=== PATIENT | female | born 1995 | race Hispanic/Latino ===

== ENCOUNTER 2017-03-11 04:07 | Inpatient (IN) | payer OTHER ==
[~2017-03-11] VITALS: Ht 160 cm; Wt 94.3 kg
[~2017-03-11 04:07] MED LIST: ACYC400T2 PO; DOCU-41 PO; FERR-83 PO; HYDR-4003 PO; IBUP-1827 PO; NOMED; SENN-133 PO
[2017-03-11] MEDS ORDERED: Lactated Ringer's 1,000 ML IV PRN (04:08)
[2017-03-11] MEDS ORDERED: Oxytocin 30 Units/500 mL LR 30 UNITS in IV Premix 1 EACH IV PRN ×3 (04:10→07:25)
[2017-03-11] MEDS ORDERED: Hemorrhage Kit, Post Partum XX ONE ×2 (04:10→07:25)
[2017-03-11] MEDS ORDERED: Oxytocin 10 Unit/mL Inj IM PRN ×2 (04:10→07:25)
[2017-03-11] MEDS ORDERED: Ondansetron 2 mg/mL 2 mL Inj IVPUSH PRN (04:10)
[2017-03-11] MEDS ORDERED: Carboprost 250 mCg/mL Inj IM PRN ×2 (04:10→07:25)
[2017-03-11] MEDS ORDERED: Methylergonovine 0.2 mg/mL Inj IM PRN ×2 (04:10→07:25)
[2017-03-11] MEDS ORDERED: fentaNYL-PF 50 mCg/mL 2 mL Inj IVPUSH PRN (04:10)
[2017-03-11] MEDS ORDERED: Sodium Chloride LOK Flush 10 mL Syringe IVFLUSH PRN (04:10)
[2017-03-11 04:44] LABS: Mean Corpuscular Hemoglobin 20.7 pg (27.0-35.0); Mean Corpuscular Volume 72.1 fL (81-100)
--- NOTE | 2017-03-11 05:13 | PCM.HPOB ---
Subjective Date of Service: Mar 11, 2017 Referring Provider: Admitting Physician: Ana Enrique MD Primary Care Physician: Ana Enrique MD Attending Physician: Ana Enrique MD Chief Complaint Active labor at 39+6 weeks gestational age History of Present History of Present Illness Patient is a very pleasant 22 year old SA 3 with LMP of 06/07/2016 and EDC by u/s done at 9+ 5 weeks is 03/12/2017. she has history of iron deficiency anemia, and Hgb was only 9.1 starting out the . She has been on PN vitamins, but does not take iron regularly. She has had sporadic PN care and attended 5 visits. Weight gain in the was 20 lbs, and she was normotensive thru out , and in labor thus far. She is attending college and working towards a degree in Human Resources, with chemical dependency training. She woke with painful contractions at 02:30 today, that picked up over the next hour, and came to the Center at 04:00. She was 5cm on arrival, with vertex presentation, and FHR was reactive, with baseline in the 130 to 140's. She was candelario every 5 to 8 minutes, and was admitted. I came in promptly and patient was being admitted and IV line getting established. Vaginal exam showed her to be 7cm. 100% effaced, with vertex at -1 station, AROM was done for a moderate amount of thin stained amniotic fluid. Patient is coping well with her contractions and breathing thru them. She does not want an epidural, and has delivered naturally for the previous 3 babies. EFW is 8 to 8 1/2 lb range, and is anticipated. OB History: (9), Para (0), Term (5), Pre-term (0), ( 3), Living (5) Obstetrical Complications: Other (iron deficiency anemia) Past Medical History Obstetrical History: #1 was a miscarriage in 2006 at 6 weeks GA. #2 was a molar in May 2008 with a D & C for a hydropic abortus, and this was done under a spinal anesthetic.Mom was 15 years old. Baby #1 was born in August 2009 at 38+5 weeks with 6 hours of labor, and Mom was 16 years old. She had PIH at term, with induction of labor, and an epidural. She went onto of a baby girl weighing 6lb 14 ounces. " Bria" Baby #2 was born in August 2010 at 41 weeks with 4.5 hours of labor, and Mom was 17 years old. She had cytotec induction of labor, but no PIH. She did have an epidural. She went onto of a baby girl weighin 6 lb 12 ounces. "Aga" Baby #3 was born July 2011 at 39 +4 weeks with 6 hours of labor, and Mom was 18 years old, and had completed highschool. She had of a baby girl weighing 7lbs, and had IV fentanyl in labor. She had sporadic PN care with this . " Matthew Pendleton" Baby #4 was born October 2013 at 40 weeks of pregancy, with 2.5 hours of labor , and Mom was 20 years old, and attending college and working some. She had PPH in the first 2 hours after delivery, with 2 units of PRBC. She was severely anemic coming into labor, with Hgb 7.7 and bleeding had been aggressively managed, but there was little reserve. " Benito" #7 was a miscarriage in April 2015 at 6 weeks that passed on its own with no complications. Baby #5 was born January 2016 at 40 +3 weeks with 2 hours of labor. She had of a baby boy weighing 8lb 13 ounces. She had a healthy and baby. " Louie" This is her 9th and current . Gynecologic History: She has had abnormal pap smears in 2015 range with colposcopy and biopsy. She is HPV +. She has also had chlamydia in the past which was treated. Medical History: She has had recurrent tonsillitis in 2010 but did not proceed with tonsillectomy. She had a lip stud on the lower lip which overgrew and was removed. She has had chronic iron deficiency anemia with closely spaced pregnancies. Surgical History: D & C for a hydropic abortus in May 2008. 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 She is working towards a degree in human services with chemical dependency training. Hx Tobacco Use: No Hx Alcohol Use: No Hx Substance Use: No Past Family History Living Arrangement: with Family Genetic Screening/Counseling Genetic Screening/Counseling: Negative Baby father-had child w defect: No Review of Systems Constitutional: Y: Dizziness, Fever Eyes: Denies: Blurred Vision, Conjunctive Inflammation, Vision Changes ENT: Denies: Dental Problems, Nasal Congestion, Ulcers/Sores in Mouth Cardiovascular: Denies: Chest Pain, Edema Respiratory: Denies: Cough, SOB with Exertion Gastrointestinal: Denies: Constipation, Diarrhea, Nausea, Vomiting Genitourinary: Denies: Dysuria Musculoskeletal: Denies: Redness, Swelling Skin/Breasts: Denies: Bruising, Discharge Skin: Denies: Jaundice Neurological: Denies: Change in Speech Psychologic: Denies: Agitation, Anxious, Depression Hematologic: Denies: Adenopathy Medications Home medications vitamins 1 tab daily, with sporadic use of iron supplements Allergy Coded Allergies: No Known Allergies (Verified , 10/24/15) Exam Vital Signs 122/76, Temp 36.8, HR 78 Constitutional: Well-developed, Well-nourished HEENT: PERRLA, EOMI, Mucous Membr Moist/[facility] Lungs: Clear to Auscultation, Normal Air Movement Heart: Regular Rate/Rhythm, Normal S1, Normal S2, No Murmurs/Rubs/Gallops Abdomen: Gravid, Normal bowel sounds, Soft, No tenderness Lymphatic: Normal: Neck Palpation of Nodes Extremities: Pulses Palpable x4, Warm, No Edema Neurological/Psychiatric: Alert, Oriented X3, Cooperative, No Acute Distress Neuro: Grossly Neurologically Intact Labs/Diagnostics Labs She is O +, with no abnormal antibodies. Pap smear showed HGSIL, and will be followed . She is immune to varicella, but is not immune to rubella ( vaccination planned PP). RPR was nonreactive, urine culture was negative. HIV was negative, Hepatitis B s antigen was negative, Hepatitis C was negative. HSV type 1 is positive, but type 2 is negative. TSH normal at 0.8, and A 1C was 5.4% . GTT was not done. GC/Chlamydia was negative. GBS was negative. Maternal Blood Type: O Hx Rho(D) Immune Globulin: No Antibody Screen: negative Group B Strep Results: Negative Previous Infant with GBS: No Lab History: Positive for: Hx Herpes, Negative for: Hx Chicken Pox, Hx Gonorrhea, Hx HIV, Hx Syphilis OB Intrapartum Assessment/Plan Assessment 22 year old at 39+6 weeks with active labor. AROM showed thin meconium staining to the amniotic fluid.FHR baseline is in the 130's with good BTBV and some accels. Pitocin augmentation at 2 millunits per minute was recently started , as contractions were still 5 minutes apart and cervix was unchanged.Mom is coping well with her contractions, and FHR is reassuring. is anticipated.Hemoglobin is 7.8 on admission and aggressive management of any PP bleeding will be done. We will be keeping pitocin up and running PP as well, as her last bleed was about 2 hours after delivery. Problems: (1) Qualifiers: Weeks of gestation: 39 weeks Qualified Code: Z3A.39 - 39 weeks gestation of Status: Acute ICD Code: Z33.1 Pain Evaluation: Adequate Pain Control Ana Enrique MD Mar 11, 2017 05:13
[2017-03-11] MEDS ORDERED: Lactated Ringer's 1,000 ML IV SCH (06:00)
[2017-03-11] MEDS ORDERED: LANOlin HPA 7 Gm Ointment TOPICAL PRN (07:25)
[2017-03-11] MEDS ORDERED: Measles-Mumps-Rubella Vaccine 0.5 mL Inj SUBQ ONE (07:25)
[2017-03-11] MEDS ORDERED: Witch Hazel-Glycerin Pads TOPICAL PRN (07:25)
[2017-03-11] MEDS ORDERED: Benzocaine (Dermoplast) 20% 60 Gm Spray TOPICAL PRN (07:25)
--- NOTE | 2017-03-11 07:34 | PCM.OBVAG ---
Vaginal Delivery Date of Service Mar 11, 2017 Pre Operative Diagnosis Pre Operative Diagnosis 1. at 39+6 weeks with spontaneous labor 2. Iron deficiency anemia with admitting Hgb 7.8 3. Thin meconium staining to the amniotic fluid 4. of LBM 5. Post hemorrhage of > 500mls Post Operative Diagnosis Post Operative Diagnosis 1. at 39+6 weeks gestational age with spontaneous labor 2. Iron deficiency anemia with admitting Hgb 7.8 3. Thin meconium staining of the amniotic fluid 4. of LBM infant 5. hemorrhage with EBL > 500mls Procedure Obstetical Procedure: Normal Spontaneous Vaginal Delivery, Repair of Perineal Tear (1st degree) [employer] Officer/Placement Coordinator Provider and Placement Coordinator: Dr. Ana Enrique Indication for Procedure Induction: Active labor, Pitocin augmentation, AROM, Progressed normally through labor Findings Obstetrical Findings: Napoleon (Male), Cord (3 Vessel), Weight ( grams), Presentation (Vertex), 1 minute (9), 5 minutes (9), Placenta (Intact /Normal), Perineal Laceration (1st degree) Analgesia/Medications Obstetrical Anesthesia: Local Procedure Details Procedure Details Patient is a pleasant 22 year old SA 3 who has had sporadic PN care and EDC 03/12/2017 by a first trimester ultrasound. She started in labor at 02:30 hrs and was 5 cm on arrival at 04:00hrs. FHR was reassuring in labor and delivery, with baseline in the 130 to 140's with good BTBV and accelerations. AROM was done at 7 cm, for thin meconium staining to the amniotic fluid. Mother' s contractions were spacing out at every 5 minutes and pitocin augmentation of labor at 2 milliunits per minute was started. Her first stage of labor was 4 hours and 12 minutes, second stage was 3 minutes and third stage was 21 minutes. She went onto of a live born male infant, with BW 3542 grams, and Apgars of 9 at one minute and 10 at 5 minutes. There was terminal meconium noted , but baby was vigorous and did well. He was placed on the maternal abdomen, and delayed cord clamping was done. Mom sustained a small first degree perineal tear which was repaired with 3-O vicryl to achieve good cosmesis and hemostasis. Mother had variable gushes of blood PV before the placenta delivered , and pitocin was running at 350mls per hour, and repeated fundal massage was done with good response. Cytotec 800mcg [place] x 1 dose was placed and good uterine tone was noted. Nonetheless, EBL at time of delivery was > 500mls. CBC is pending at this time, and pt has also been cross matched for 2 units of PRBC. Placenta delivered intact with a 3 vessel cord, and specimen was sent for disposal. Mom was GBS negative. Her BP after delivery has ranged 129-132/ 65 to 74 with HR in the low 80's. However, she is very pale, fatigued and feels dizzy and weak. CBC came back showing Hgb of 7.2 and pt would like to have the blood transfused to day. Last time, we had delayed this until the next day, and while pt tolerated this well, she would like to start feeling better with less dizziness and fatigue. 2 units will be transfused today. Specimen Placenta was for routine disposal. Blood Loss & Administration Estimated Blood Loss: >500 Post Procedure Plan Post Procedure Plan CBC, PT/INR and fibrinogen levels ordered and patient has been crossmatched for 2 units of PRBC. She does intend to breastfeed, and baby is doing well. Post delivery Condition: Mom Ana De Paz MD Mar 11, 2017 07:34
[2017-03-11 08:04] LABS: Mean Corpuscular Volume 72.6 fL (81-100)
[2017-03-11 08:16] LABS: INR 0.88 ratio
[2017-03-11] MEDS: HYDROcodone-APAP 5-325 mg Tablet PO PRN ×3 (12:17→22:39)
[2017-03-11] MEDS: Ascorbic Acid 500 mg Tablet PO SCH (17:30)
[2017-03-11] MEDS: Lactated Ringer's 1,000 ML IV SCH ×2 (19:00→23:22)
[2017-03-12] MEDS: HYDROcodone-APAP 5-325 mg Tablet PO PRN ×3 (02:38→10:25)
[2017-03-12] MEDS ORDERED: Measles-Mumps-Rubella Vaccine 0.5 mL Inj SUBQ ONE (06:25)
[2017-03-12 07:17] LABS: Mean Corpuscular Hemoglobin 22.5 pg (27.0-35.0); Mean Corpuscular Volume 75.9 fL (81-100)
[2017-03-12] MEDS: Lactated Ringer's 1,000 ML IV SCH (07:22)
--- NOTE | 2017-03-12 08:04 | PCM.DC.OB ---
Obstetrical Discharge Summary Date of Service Mar 12, 2017 Date of hospital admission Mar 11, 2017 at 04:07 Date of Discharge: Mar 12, 2017 Providers Admitting Physician: Ana Enrique MD Primary Care Physician: Ana Enrique MD Attending Physician: Ana Enrique MD Diagnosis at Time of Discharge #1 at 39 weeks +6 days with spontaneous labor #2 iron deficiency anemia with admitting hemoglobin 7.8 #3 thin meconium staining to the amniotic fluid #4 spontaneous vaginal delivery of a live born male #5 hemorrhage> 500 mils with transfusion of 2 units PRBC Problems: (1) Qualifiers: Weeks of gestation: 39 weeks Qualified Code: Z3A.39 - 39 weeks gestation of Status: Resolved ICD Code: Z33.1 (2) hemorrhage Qualifiers: hemorrhage type: other immediate Qualified Code: O72.1 - Other immediate hemorrhage Onset Date: 10/29/2013 Status: Resolved ICD Code: O72.1 (3) Iron (Fe) deficiency anemia Qualifiers: Iron deficiency anemia type: inadequate dietary iron intake Qualified Code : D50.8 - Other iron deficiency anemias Status: Acute ICD Code: D50.9 (4) Spontaneous vaginal delivery Status: Acute ICD Code: O80 Brief History and Physical: Patient is a very pleasant 22 year old SA 3 with LMP of 06/07/2016 and EDC by u/s done at 9+ 5 weeks is 03/12/2017. she has history of iron deficiency anemia, and Hgb was only 9.1 starting out the . She has been on PN vitamins, but does not take iron regularly. She has had sporadic PN care and attended 5 visits. Weight gain in the was 20 lbs, and she was normotensive thru out , and in labor thus far. She is attending college and working towards a degree in Human Resources, with chemical dependency training. She woke with painful contractions at 02:30 today, that picked up over the next hour, and came to the Center at 04:00. She was 5cm on arrival, with vertex presentation, and FHR was reactive, with baseline in the 130 to 140's. She was candelario every 5 to 8 minutes, and was admitted. I came in promptly and patient was being admitted and IV line getting established. Vaginal exam showed her to be 7cm. 100% effaced, with vertex at -1 station, AROM was done for a moderate amount of thin stained amniotic fluid. Patient is coping well with her contractions and breathing thru them. She does not want an epidural, and has delivered naturally for the previous 3 babies. EFW is 8 to 8 1/2 lb range, and is anticipated. Hospital Course: Patient is a pleasant 22-year-old G9 now P6 who came in to the center yesterday in active labor and was 5 cm on presentation. She had an EDC of 2016 and has had sporadic care. Artificial rupture of membranes was done at 7 cm and showed thin meconium staining to the amniotic fluid. Contractions were spacing out and cervical change was minimal, so Pitocin 2 milliunits per minute augmentation was started and mother went nicely to complete with this. Her first stage of labor was about 4-1/2 hour second stage 3 minutes, third stage 21 minutes. She went onto spontaneous vaginal delivery of a live born male with weight of 3542 g and Apgars were 9 at 1 minute and 10 at 5 minutes. Mother sustained a small first-degree tear to the perineum which was repaired with 3-0 Vicryl to achieve good cosmesis and hemostasis. Mother had recurrent gushes of blood per vagina while the placenta was waiting to deliver and had several large gushes following delivery. She was treated with fundal massage, IV Pitocin, and Cytotec 800 g per rectum and responded well to this. Her admitting hemoglobin was 7.8 with hematocrit of 27.2 and she has history of chronic iron deficiency anemia. She had not been taking her iron supplements as recommended during the . After delivery she was feeling very lightheaded and was pale and very fatigued. She consented to receive 2 units of packed red blood cells and tolerated this transfusion well. Hemoglobin immediately after delivery was 7.2 with hematocrit of 24.9, but hemoglobin this morning after 2 units is still only up to 8.2 with hematocrit of 27.7. She is still feeling fatigued but her dizziness has resolved and she is less pale. Discussed the importance of taking her iron as directed and she will continue with breast vitamins long-term. On examination she is a pleasant female color is modestly pale but improved from yesterday. She is not orthostatic when upright. Blood pressure is 129/69 , pulse 68-80, and temperature 36.6. Chest was clear throughout with normal respiratory efforts heart sounds are sinus rhythm with no murmurs Presser saw nipples everted and colostrum is expressible. Fundus is firm at the umbilicus. Her perineum is not swollen and sutures are clean and intact and she has moderate rubra lochia. She has some puffiness to the hands and the feet but no significant edema. She is bonding well with her baby and feels ready for discharge later today. Acyclovir (Acyclovir) 400 Mg Tablet 400 MG PO BID Prescribed by: ANA ENRIQUE MD Docusate Sodium (Colace) 100 Mg Capsule 100 MG PO BID Prescribed by: ANA ENRIQUE MD Ferrous Sulfate (Ferrous Sulfate) 325 Mg Tablet 325 MG PO BID Prescribed by: ANA ENRIQUE MD Hydrocodone-Acetaminophen 5-325 mg (Hydrocodone-Acetaminophen 5-325 mg) 1 Each Tablet 1 TABLET PO Q4H PRN PRN For Pain Prescribed by: ANA ENRIQUE MD Ibuprofen (Ibuprofen) 600 Mg Tablet 800 MG PO TIDWM PRN PRN For Mild Pain Prescribed by: ANA ENRIQUE MD No Historical Medication (No Historical Medication) Ea (Reported) Sennosides (Senna) 8.6 Mg Tablet 8.6 MG PO BID PRN PRN For Constipation Prescribed by: ANA ENRIQUE MD Discharge Medications: #1 ibuprofen 800 mg by mouth 3 times a day when necessary #2 Vicodin 5/325 one to 2 tabs by mouth every 6 hours when necessary for pain as needed #3 ferrous sulfate 325 mg by mouth twice daily #4. Vitamin C 250 mg by mouth twice a day with the iron #5 Colace 100 mg by mouth twice a day when necessary for constipation Disposition Patient will be discharged home later today Discharge Diet: No restrictions Discharge Activity-General: Pelvic Rest for 6 weeks, Pelvic Rest, Try not to overdue, Be up and about, Balance rest and activity, Activity as pain allows, Activity as energy allows Ana Enrique MD Mar 12, 2017 08:04
--- NOTE | 2017-03-12 08:10 | PCM.DIOB ---
Obstetrical Disch Instruction Date of Service: Mar 12, 2017 Dates of Hospitalization Date of Hospital Admission Mar 11, 2017 at 04:07 Providers Admitting Physician: Ana Enrique MD Primary Care Physician: Ana Enrique MD Attending Physician: Ana Enrique MD Discharge Diagnosis Discharge Diagnosis #1 at 39+6 weeks with spontaneous labor #2 chronic iron deficiency anemia with admitting hemoglobin of 7.8 #3 thin meconium staining to the amniotic fluid #4 spontaneous vaginal delivery of a live born male #5 hemorrhage with transfusion of 2 units of packed red blood cells Post Operative diagnosis #1 at 39 weeks +6 days with spontaneous labor #2 chronic iron deficiency anemia with admitting hemoglobin of 7.8 #3 thin meconium staining to the amniotic fluid #4 spontaneous vaginal delivery of a live born male #5 hemorrhage with transfusion of 2 units of packed red blood cells Problems: (1) Qualifiers: Weeks of gestation: 39 weeks Qualified Code: Z3A.39 - 39 weeks gestation of Status: Resolved ICD Code: Z33.1 (2) hemorrhage Qualifiers: hemorrhage type: other immediate Qualified Code: O72.1 - Other immediate hemorrhage Onset Date: 10/29/2013 Status: Resolved ICD Code: O72.1 (3) Iron (Fe) deficiency anemia Qualifiers: Iron deficiency anemia type: inadequate dietary iron intake Qualified Code : D50.8 - Other iron deficiency anemias Status: Acute ICD Code: D50.9 (4) Spontaneous vaginal delivery Status: Acute ICD Code: O80 Diet Discharge Diet: No restrictions Activity Discharge Activity-General: No restrictions, Pelvic Rest for 6 weeks, Try not to overdue, Be up and about, Balance rest and activity, Activity as pain allows , Activity as energy allows Dressing and Incisional Care Hygiene: May shower, Perineal care, Sitz bath, Dermoplast spray, Witch Santa pads, Ice Additional Instructions Discharge Instructions Please breast-feeding every 2-3 hours and more often as needed. Please also be very consistent with taking her iron and vitamins as this will help to improve your anemia and energy levels. Follow Up Plan Follow Up Plan Dr. Enrique Follow-up appointment: Weeks (6) Call your provider for: Fever or Chills, Shortness of breath, Heavy vaginal bleeding, Epigastric pain, Excessive constipation, Vaginal discomfort, Red painful breasts Ana Enrique MD Mar 12, 2017 08:10
[2017-03-12] MEDS ORDERED: HYDR-4003 PO (08:14)
[2017-03-12] MEDS ORDERED: DOCU-41 PO (08:14)
[2017-03-12] MEDS ORDERED: Ascorbic Acid PO (08:14)
[2017-03-12] MEDS ORDERED: IBUP800T28 PO (08:14)
[2017-03-12] MEDS: Ascorbic Acid 500 mg Tablet PO SCH (08:25)
[2017-03-12 10:13] VITALS: BP 127/65; PULSE 68; RESP 18
== END 2017-03-12 13:00 | disposition home or self-care (01) | DRG 774 ==
LOC: FBC 04:07
PROVIDERS: ADMIT Family Medicine; ATTEND Family Medicine
PROC: 10E0XZZ Delivery of Products of Conception, External Approach (ICD-10-PCS; principal; 2017-03-11)
PROC: 0HQ9XZZ Repair Perineum Skin, External Approach (ICD-10-PCS; 2017-03-11)
PROC: 10907ZC Drainage of Amniotic Fluid, Therapeutic from Products of Conception, Via Natural or Artificial Opening (ICD-10-PCS; 2017-03-11)
PROC: 30233N1 Transfusion of Nonautologous Red Blood Cells into Peripheral Vein, Percutaneous Approach (ICD-10-PCS; 2017-03-11)
DX: O99.02 Anemia complicating childbirth (principal); O72.1 Other immediate postpartum hemorrhage; O77.0 Labor and delivery complicated by meconium in amniotic fluid; O70.0 First degree perineal laceration during delivery; D50.9 Iron deficiency anemia, unspecified; Z37.0 Single live birth; Z3A.39 39 weeks gestation of pregnancy

== ENCOUNTER 2017-04-24 11:44 | Emergency (ER) | payer OTHER ==
[~2017-04-24] VITALS: Ht 160 cm; Wt 86.4 kg
[~2017-04-24 11:44] MED LIST changes: +Ascorbic Acid PO; +IBUP800T28 PO
[2017-04-24 11:50] VITALS: BP 119/73; PULSE 89; RESP 26; O2SAT 97
--- NOTE | 2017-04-24 12:09 | ED.REPORT ---
HPI-Dyspnea / Wheezing Date of Service Apr 24, 2017 ED Provider: Pascual Arguello MD Pt is a 22 year old female with a hx of asthma presenting to the ED complaining of SOB onset a few days ago, worsened this morning. Pt is out of Albuterol, called Dr. Enrique and was told to come to the ER for a refill. Pt is from 03/11/17. She reports that she feels a heaviness and pressure in her chest, and that this is more severe than her usual asthma attacks. Denies fever, LE swelling, hx of blood clots. Associated symptoms include cough and vomiting due to intense coughing. Nursing Notes Stated Complaint: TROUBLE BREATHING Chief Complaint: Respiratory Complaints Nursing Notes Reviewed: Yes ([employer], [employer] not reconciled) Allergies: Coded Allergies: No Known Allergies (Verified , 04/24/17) Scheduled ([Ascorbic Acid]) 500 MG TABLET 500 MG PO BIDWM Acyclovir (Acyclovir) 400 Mg Tablet 400 MG PO BID Docusate Sodium (Colace) 100 Mg Capsule 100 MG PO BID Docusate Sodium (Colace) 100 Mg Capsule 100 MG PO BID Ferrous Sulfate (Ferrous Sulfate) 325 Mg Tablet 325 MG PO BID Prednisone (PredniSONE) 20 Mg Tablet 60 MG PO DAILY Scheduled PRN Albuterol HFA (Proair HFA) 8.5 Gm Hfa.aer.ad 2 PUFFS INHALATION Q4H PRN PRN For Shortness of Breath Hydrocodone-Acetaminophen 5-325 mg (Hydrocodone-Acetaminophen 5-325 mg) 1 Each Tablet 1 TABLET PO Q4H PRN PRN For Pain Hydrocodone-Acetaminophen 5-325 mg (Hydrocodone-Acetaminophen 5-325 mg) 1 Each Tablet 1-2 TABLET PO Q4H PRN PRN For Pain Ibuprofen (Ibuprofen) 600 Mg Tablet 800 MG PO TIDWM PRN PRN For Mild Pain Ibuprofen (Ibuprofen) 800 Mg Tablet 800 MG PO Q6H PRN PRN For Pain Sennosides (Senna) 8.6 Mg Tablet 8.6 MG PO BID PRN PRN For Constipation Miscellaneous Medications No Historical Medication (No Historical Medication) Ea General Time Seen by MD: 12:07 Chief Complaint Shortness of breath Hx Obtained From: Patient Arrived By: Walk-in Sudden in Onset?: No Onset Occurred: 3 days ago Symptom Duration: Since onset Severity: Current: No pain currently Severity: Maximum: No pain Recent Healthcare: No recent doctor visit, No recent hospitalization Similar Sx Previous: Yes Risk Factors PE Risk Stratification PostpartumNo Previous DVT, No Previous PE Risk factors reviewed Past Medical History Past Medical History Mild pre-eclampsia with first Past Surgical History denies Family History Noncontributory Smoking History Never Smoker Social History Alcohol Use: Denies alcohol use Drug Use: Denies drug use Other Social History: Local resident Ambulatory Status Independent Review of Systems Respiratory: Reports: Non-productive cough, Shortness of breath Musculoskeletal: Denies: Extremity swelling Skin: Denies Swelling Complete sys rev & neg: except as marked. GI: Reports: Vomiting Physical Exam Initial Vital Signs Vital Signs (First) Date Time Temp Pulse Resp B/P Pulse Ox O2 Delivery O2 Flow Rate FiO2 04/24/17 11:50 36.4 89 26 119/73 97 Room Air Initial VS: Reviewed, Vital signs normal Head / Eyes: Atraumatic, Normocephalic, PERRL ENT: Mucous membranes moist, Conjunctiva normal, No scleral icterus Abdomen / GI: Soft, Non-tender, No guarding, No rebound, No distention Skin: Warm, Dry, No cyanosis Neurologic: Alert, Oriented, Nonfocal Psychiatric: Mood/affect normal, Behavior normal, Normal thought content General/Constitutional: Awake, Alert, Well appearing Respiratory / Chest: Atraumatic Resp Distress / Stridor: Positive: Resp distress moderate Tachypnic and dyspnic. 5 word dyspnea. Severe bronchospasms in all oliver. Cardiovascular: Regular rhythm, Heart sounds NL Mildly tachycardic Lower Extremity / Pelvis / MS: Neurologic intact, Vascular intact, No edema No clinical findings for DVT Re-Eval/Medical Decision Med Decision/Clinical Course The consistent 22-year-old asthmatic who started developing some shortness of breath of the past few days, wanted to refill her inhaler but talked to the nurse line over the phone and she is about 6 weeks and states this was more severe than some of her previous asthma exacerbations, over the phone they had concerns of the possibility of venous thromboembolism referred to the ED for further evaluation. On arrival the patient is tachypnea, and profoundly bronchospastic clinically, he has no clinical findings on physical exam of the venous thromboembolism. She has no prior history of venous thromboembolism. Again she is 6 weeks . Given her exam, her history both argue for bronchospasm rather than venous thromboembolism, she was treated empirically to see her response. She received albuterol, Atrovent, and steroids-with complete resolution of distress, and near complete resolution of bronchospasm. The patient feels much better. Again all this argues that this is indeed a primary, albeit severe, asthma exacerbation, and not of venous thromboembolic event to require additional testing. The patient is being discharged with a refill of her albuterol, as well as a 5 day course of prednisone. He is much improved at time of discharge. Routine precautions reviewed. Source of Hx: Old records Re-Evaluation/Progress : Time of Eval: 13:57 Patient Status: Condition improved Re-Evaluation/Progress Note: Pt feels 70% better, still has a bit of wheezing but she is much improved. Discussed plan for discharge. Pt understands and agrees with plan. Differential Diagnosis: Positive: Asthma, Negative: Acute coronary syndrome, Foreign body airway, Myocardial infarction , Pericarditis, Pneumonia, Pneumothorax, Pulmonary embolism, Respiratory failure Counseled Regarding: Diagnosis, Lab results, Need for follow-up, When/why to return to ED Discharge & Departure Impression: Primary Impression: Asthma Asthma severity: moderate persistent Asthma complication type: with acute exacerbation Qualified Code: J45.41 - Moderate persistent asthma with (acute) exacerbation Disposition: Home Discharge Condition All VS Reviewed: Yes Condition: Improved Additional Instructions: 1. Your symptoms, exam, and response to treatment all indicate this is a severe asthma exacerbation, not a blood clot. 2. Use the albuterol inhaler 2 puffs every 4 hours as needed. 3. Take prednisone 20 mg 3 tabs together once a day for 5 days. 4. Return again if new, worsening or uncontrolled symptoms occur. 5. Follow up with your regular doctor Referrals: Ana Enrique MD (PCP) Hubert Attestation Portions of this note were transcribed by Kalani Azar. I, Dr. Arguello personally performed the history, physical exam and medical decision-making; I reviewed and confirmed the accuracy of the information in the transcribed note. Signed by: Hubert Haddad, 04/24/2017 at 1407. copies to: Ana Enrique MD, Matthew F MD Apr 24, 2017 12:09 KALANI AZAR Apr 24, 2017 12:41
[2017-04-24] MEDS ORDERED: Albuterol 2.5 mg/3 mL Inhalation Solution NEB ONE (12:10)
[2017-04-24] MEDS ORDERED: Ipratropium 0.02% 0.5 mg/2.5 mL Inhalation Solution NEB ONE (12:10)
[2017-04-24] MEDS ORDERED: predniSONE 20 mg Tablet PO ONE (12:10)
[2017-04-24 12:37] VITALS: PULSE 89; RESP 24; O2SAT 99
[2017-04-24 13:18] VITALS: PULSE 87; RESP 24; O2SAT 99
[2017-04-24 13:55] VITALS: PULSE 93; RESP 21; O2SAT 95
[2017-04-24] MEDS ORDERED: ALBU8.5H2 INHALATION (14:03)
[2017-04-24] MEDS ORDERED: PRE20 PO (14:03)
[2017-04-24 14:10] VITALS: BP 101/50; PULSE 89; RESP 18; O2SAT 93
== END 2017-04-24 14:11 | disposition home or self-care (01) ==
LOC: SED 11:44
DX: J45.41 Moderate persistent asthma with (acute) exacerbation (principal); R07.89 Other chest pain; R11.10 Vomiting, unspecified
CPT/HCPCS: 94640; 94664; 99284; J7613

== ENCOUNTER 2017-04-26 03:32 | Emergency (ER) | payer OTHER ==
[~2017-04-26] VITALS: Ht 160 cm; Wt 86.4 kg
[~2017-04-26 03:32] MED LIST changes: +ALBU8.5H2 INHALATION; +PRE20 PO
[2017-04-26 03:41] VITALS: BP 121/75; PULSE 78; RESP 32; O2SAT 94
--- NOTE | 2017-04-26 03:56 | ED.REPORT ---
HPI-General Illness Date of Service Apr 26, 2017 ED Provider: Dr. Montes Pt is a 22 year old female with a history of asthma who presents to the ED complaining of SOB onset prior to arrival. She denies any other symptoms. The pt was seen at [facility] 2 days ago and did not get her inhaler prescription filled. Nursing Notes Stated Complaint: DIFFICULTY BREATHING Chief Complaint: Respiratory Complaints Nursing Notes Reviewed: Yes Allergies: Coded Allergies: No Known Allergies (Verified , 04/24/17) Scheduled ([Ascorbic Acid]) 500 MG TABLET 500 MG PO BIDWM Acyclovir (Acyclovir) 400 Mg Tablet 400 MG PO BID Beclomethasone Dipropionate (Qvar) 8.7 Gm Aer.w.adap 1 PUFF INHALATION BID Docusate Sodium (Colace) 100 Mg Capsule 100 MG PO BID Docusate Sodium (Colace) 100 Mg Capsule 100 MG PO BID Ferrous Sulfate (Ferrous Sulfate) 325 Mg Tablet 325 MG PO BID Prednisone (PredniSONE) 20 Mg Tablet 60 MG PO DAILY Prednisone (PredniSONE) 20 Mg Tablet 60 MG PO DAILY Scheduled PRN Albuterol HFA (Proair HFA) 8.5 Gm Hfa.aer.ad 2 PUFFS INHALATION Q4H PRN PRN For Shortness of Breath Hydrocodone-Acetaminophen 5-325 mg (Hydrocodone-Acetaminophen 5-325 mg) 1 Each Tablet 1 TABLET PO Q4H PRN PRN For Pain Hydrocodone-Acetaminophen 5-325 mg (Hydrocodone-Acetaminophen 5-325 mg) 1 Each Tablet 1-2 TABLET PO Q4H PRN PRN For Pain Ibuprofen (Ibuprofen) 600 Mg Tablet 800 MG PO TIDWM PRN PRN For Mild Pain Ibuprofen (Ibuprofen) 800 Mg Tablet 800 MG PO Q6H PRN PRN For Pain Sennosides (Senna) 8.6 Mg Tablet 8.6 MG PO BID PRN PRN For Constipation Miscellaneous Medications No Historical Medication (No Historical Medication) Ea General Time Seen by MD: 03:55 Chief Complaint Breathing problem Hx Obtained From: Patient Arrived By: Walk-in Sudden in Onset?: No Onset Occurred: Just prior to arrival Symptom Duration: Since onset Severity: Current: No pain currently Severity: Maximum: No pain Recent Healthcare: Recent doctor visit Similar Sx Previous: Yes Past Medical History Past Medical History Mild pre-eclampsia with first Reports: Asthma Past Surgical History denies Family History Noncontributory Smoking History Never Smoker Social History Alcohol Use: Denies alcohol use Drug Use: Denies drug use Other Social History: Local resident Ambulatory Status Independent Review of Systems Full Review of Systems Constitutional: Denies: Chills, Fever Respiratory: Reports: Shortness of breath, Denies: Non-productive cough Complete sys rev & neg: except as marked. Physical Exam Vital Signs Vital Signs Date Time Temp Pulse Resp B/P Pulse Ox O2 Delivery O2 Flow Rate FiO2 04/26/17 05:34 37.0 91 20 123/53 99 Room Air 04/26/17 05:12 94 22 98 Room Air 04/26/17 04:08 76 28 97 Room Air 04/26/17 03:41 36.4 78 32 121/75 94 Room Air Initial VS: Reviewed Head / Eyes: Atraumatic, Normocephalic, PERRL ENT: Mucous membranes moist, Conjunctiva normal, No scleral icterus Neck: Supple, Full range of motion Cardiovascular: Regular rate & rhythm, Heart sounds normal, Intact distal pulses Abdomen / GI: Soft, Non-tender Extremities: Vascular intact, Neuro intact Skin: Warm, Dry, No cyanosis Neurologic: Alert, Oriented, Nonfocal Psychiatric: Mood/affect normal, Behavior normal, Normal thought content Respiratory / Chest: Atraumatic Tight. Wheezing, extra work of breathing apparent with use of extra thoracic muscles Interpretation & Diagnostics Lab Results Interpretation Result Diagram: 04/26/17 0414 04/26/17 0414 Test 04/26/17 04:14 White Blood Count 9.0th/mm3 (3.8-10.1) Red Blood Count 4.25mil/mm3 (3.90-5.20) Hemoglobin 10.7g/dL (12.0-15.6) Hematocrit 34.2% (35.0-46.0) Mean Corpuscular Volume 80.5fL (81-100) Mean Corpuscular Hemoglobin 25.2pg (27.0-35.0) Mean Corpuscular Hemoglobin Concent 31.3% (32.0-37.0) Red Cell Distribution Width 18.1% (12.3-15.4) Platelet Count 345bil/L (150-400) Neutrophils (%) (Auto) 56.6% (40-74) Lymphocytes (%) (Auto) 26.7% (14-46) Monocytes (%) (Auto) 5.6% (4-12) Eosinophils (%) (Auto) 10.6% (0-5) Basophils (%) (Auto) 0.3% (0-3) Sodium Level 140mEq/L (134-144) Potassium Level 4.1mEq/L (3.5-5.2) Chloride Level 106mEq/L (97-108) Carbon Dioxide Level 22mmol/L (18-29) Blood Urea Nitrogen 13mg/dL (6-20) Creatinine 0.49mg/dL (0.57-1.00) Estimat Glomerular Filtration Rate 222mL/min (>59) Glucose Level 94mg/dL (60-99) Calcium Level 8.9mg/dL (8.5-10.1) Magnesium Level 1.9mg/dL (1.6-2.6) Total Bilirubin 0.2mg/dL (0.0-1.2) Aspartate Amino Transf (AST/SGOT) 33U/L (0-50) Alanine Aminotransferase (ALT/SGPT) 34U/L (0-32) Alkaline Phosphatase 96U/L (25-150) Troponin T 0.010ug/L (0.0-0.011) Total Protein 7.5g/dL (6.4-8.4) Albumin 3.8g/dL (3.4-5.0) ECG Interpretation ECG Interpretation: Sinus rhythm with a rate of 70 Atrial premature complex Time: 04:01 Interpreted by: ED physician X-Ray Chest Interpretation Chest Xray Interpretation: Negative Interpretation / Wet Read by: Wet read ED physician Re-Eval/Medical Decision Med Decision/Clinical Course 22-year-old with significant asthma presents quite tight, having not filled any of her prescribed medicines including her steroids. She has improved with two rounds of nebulizers here, but is cautioned that noncompliance of disorders actually dangerous and may result in her demise. She is provided with a metered-dose inhaler, a dose of Decadron here and a prescription for prednisone. Qvar provided to call the prednisone. Follow up with PCP. Source of Hx: Old records Time of Eval: 05:37 Re-Evaluation/Progress Note: Pt rechecked. Informed pt of plan for discharge. Pt understands and agrees with plan for discharge. F/U instructions and RTER warnings given. All questions addressed. Counseled Regarding: Diagnosis, Lab results, Need for follow-up, When/why to return to ED Discharge & Departure Primary Impression: Asthma Asthma severity: unspecified severity Disposition: Home Discharge Condition All VS Reviewed: Yes Condition: Stable Additional Instructions: Leaving your asthma untreated in this way is dangerous. It is critical take your medicine as directed. You were quite tight when you arrived, and could have fatigued and gotten into real trouble in a very short time. Begin prednisone three tabs daily for five days. Continue albuterol puffer with spacer two puffs every four hours. If this is insufficient, return here for further evaluation. On the last day of prednisone, begin Beclovent/Qvar inhaler two puffs twice daily with spacer. Follow-up with your doctor in the office. Referrals: Ana Enrique MD (PCP) Claudetteibfeliciano Attestation Portions of this note were transcribed by Luci Pinon. I, Dr. Montes personally performed the history, physical exam and medical decision-making; I reviewed and confirmed the accuracy of the information in the transcribed note. Signed by: Hubert Lewis, 04/26/17 and 5:45 copies to: Ana Enrique MD, Christopher W MD Apr 26, 2017 03:56 Luci Sanchez Apr 26, 2017 04:22
[2017-04-26] MEDS ORDERED: Albuterol 2.5 mg/3 mL Inhalation Solution NEB ONE ×2 (04:00→05:05)
[2017-04-26] MEDS ORDERED: Albuterol HFA 200 Puff Inhaler (Vent Pts Only) INHALATION PRN (04:00)
[2017-04-26] MEDS ORDERED: Albuterol-Ipratropium 3 mL Inhalation Solution NEB ONE (04:00)
[2017-04-26] MEDS ORDERED: Dexamethasone 20 mg/2 mL Oral Solution PO ONE (04:05)
[2017-04-26 04:08] VITALS: PULSE 76; RESP 28; O2SAT 97
[2017-04-26 04:25] LABS: BASOPHILS % (AUTO) 0.3 % (0-3); EOSINOPHILS % (AUTO) 10.6 % (0-5); MONOCYTES % (AUTO) 5.6 % (4-12); Mean Corpuscular Hemoglobin 25.2 pg (27.0-35.0); Mean Corpuscular Volume 80.5 fL (81-100); NEUTROPHILS % (AUTO) 56.6 % (40-74); Platelet Count 345 bil/L (150-400)
[2017-04-26 04:47] LABS: TROPONIN T 0.01 ug/L (0.0-0.011)
[2017-04-26 04:59] LABS: Magnesium 1.9 mg/dL (1.6-2.6)
[2017-04-26 05:12] VITALS: PULSE 94; RESP 22; O2SAT 98
[2017-04-26] MEDS ORDERED: PRE20 PO (05:15)
[2017-04-26] MEDS ORDERED: BECL8.7A6 INHALATION (05:15)
[2017-04-26 05:34] VITALS: BP 123/53; PULSE 91; RESP 20; O2SAT 99
--- NOTE | 2017-04-26 12:08 | DRSVH ---
PROCEDURE: X-RAY CHEST ONE VIEW, PORTABLE ([id number]) INDICATIONS: chest pain TECHNIQUE: One view of the chest was acquired. COMPARISON: [facility], RG, CHEST 2VW, 03/12/2000, 13:55. FINDINGS: Surgical changes and devices: None. Lungs and pleura: No pleural effusions or pneumothorax. Lungs are clear. Mediastinum: Mediastinal contours appear normal. Heart size is normal. Bones and chest wall: No suspicious bony lesions. Overlying soft tissues appear unremarkable. IMPRESSION: 1. No acute cardiopulmonary disease. Dictated by: Werner Flores M.D. on 04/26/2017 at 12:01 Approved by: Werner Flores M.D. on 04/26/2017 at 12:01
== END 2017-04-26 05:40 | disposition home or self-care (01) ==
LOC: SED 03:32
DX: J45.909 Unspecified asthma, uncomplicated (principal)
CPT/HCPCS: 36415; 71010; 80053; 83735; 84484; 85025; 93005; 94640; 94664; 99285; J7613; J7620